=== PATIENT | female | born 1990 | race Caucasian/White ===

== ENCOUNTER 2021-09-08 16:04 | Emergency (ER) | payer OTHER ==
[~2021-09-08] VITALS: Ht 165.1 cm; Wt 111.1 kg
[2021-09-08] MEDS ORDERED: SILVADENE20 GM TOP (17:09)
[2021-09-08] MEDS ORDERED: CIPRO500 MG PO (17:09)
== END 2021-09-08 17:33 | disposition home or self-care (01) ==
LOC: ER 16:04
DX: T20.26XA Burn of second degree of forehead and cheek, initial encounter (principal); X12.XXXA Contact with other hot fluids, initial encounter; Y92.019 Unspecified place in single-family (private) house as the place of occurrence of the external cause